=== PATIENT | male | born 1980 | race Caucasian/White ===

== ENCOUNTER 2016-11-04 12:31 | Emergency (ER) | payer OTHER | END 2016-11-04 13:49 | disposition home or self-care (01) | LOC: D.ER 12:31 | DX: M54.16 Radiculopathy, lumbar region (principal) ==

== ENCOUNTER 2017-07-24 19:40 | Emergency (ER) | payer OTHER | END 2017-07-24 21:38 | disposition home or self-care (01) | LOC: D.ER 19:40 | DX: M54.5 Low back pain (principal); S39.012A Strain of muscle, fascia and tendon of lower back, initial encounter; X58.XXXA Exposure to other specified factors, initial encounter; Y93.89 Activity, other specified; Y92.019 Unspecified place in single-family (private) house as the place of occurrence of the external cause; M62.838 Other muscle spasm ==

== ENCOUNTER 2018-12-01 18:51 | Emergency (ER) | payer OTHER ==
[~2018-12-01] VITALS: Ht 185.4 cm; Wt 84.1 kg
[2018-12-01 19:06] VITALS: BP 123/71; Ht 185.4 cm; Wt 84.1 kg
[2018-12-01] MEDS ORDERED: VOLTAREN75 MG PO (21:05)
== END 2018-12-01 21:51 | disposition home or self-care (01) ==
LOC: D.ER 18:51
DX: M25.552 Pain in left hip (principal); M79.18 Myalgia, other site